=== PATIENT | male | born 1935 | race Caucasian/White ===

== ENCOUNTER → 2021-07-02 | Outpatient (CLI) | payer OTHER, BC ==
[~2021-07-02] MED LIST: LEVOTHYROXINE75 MC1 PO; LIPITOR 10 MG10 M1 PO; ST. JOSEPH ASPI81 MG PO
== END ==
LOC: LAB 09:46
PROVIDERS: ATTEND Student in an Organized Health Care Education/Training Program
DX: Z01.812 Encounter for preprocedural laboratory examination (principal); Z20.822 Contact with and (suspected) exposure to COVID-19

== ENCOUNTER → 2021-07-04 | Outpatient (CLI) | payer OTHER, BC ==
[~2021-07-04] VITALS: Ht 172.7 cm; Wt 72.6 kg
--- NOTE | ~2021-07-04 | P ---
[facility] [place] [address] PROCEDURE REPORT Name: JENNY SIMEON Room #: REG VANESSA Carmen#: [id number] Admission: 07/04/21 Attend Phys: Reyes Rodriguez Discharge: Date of : 39 Report #: [id number] THIS REPORT FOR: cc: Yair Riley MD,Reyes Roberts MD, MD ~ cc: Yair Riley DATE OF SERVICE: 07/04/2021 PROCEDURE PERFORMED: Colonoscopy. HISTORY OF PRESENT ILLNESS: The patient is an 85-year-old male with previous history of large cecal polyp, status post right hemicolectomy in 2005. Last colonoscopy was 3 years ago in which a polyp was removed in [place], [place]. He denies any symptoms at this time. No family history of colon cancer. DESCRIPTION OF PROCEDURE: The risks and benefits of the procedure were explained to the patient, those risks including but not limited to bleeding, perforation and the risk of sedation. He understood these risks and gave informed consent. Sedation was given using propofol per anesthesia. Next, a digital rectal exam was initially performed, which was normal. Next, using a standard Olympus colonoscope, the scope was placed in the patient's anus and advanced under direct vision into the right colon, at which point, the surgical anastomosis was noted. This was well healed and widely patent. The terminal ileum was intubated and normal in appearance. The scope was then brought back into the patient's colon, the remaining transverse colon was normal. Descending sigmoid colon were normal. The rectal mucosa was normal. On retroflexion, small nonbleeding internal hemorrhoids were noted. The scope was then withdrawn and the procedure terminated. The patient tolerated the procedure well. IMPRESSION: 1. Surgical changes of right hemicolectomy noted. 2. Small internal hemorrhoids. 3. Otherwise, normal colonoscopy. RECOMMENDATIONS: Consider repeat colonoscopy in 3 years. Thank you for allowing me to participate in his care. By: [id number] Reyes Meredith MD /nt
== END | disposition home or self-care (01) ==
LOC: GI
PROVIDERS: ATTEND Specialist
DX: Z12.11 Encounter for screening for malignant neoplasm of colon (principal); Z86.010 Personal history of colon polyps; K64.8 Other hemorrhoids; E78.5 Hyperlipidemia, unspecified; Z98.890 Other specified postprocedural states; Z79.899 Other long term (current) drug therapy; Z87.891 Personal history of nicotine dependence; Z90.49 Acquired absence of other specified parts of digestive tract; Z85.46 Personal history of malignant neoplasm of prostate; Z79.82 Long term (current) use of aspirin
CPT/HCPCS: 62110; 62900